=== PATIENT | female | born 1960 | race African-American/Black ===

== ENCOUNTER 2017-02-01 04:30 | Inpatient (IN) | payer OTHER ==
[2017-02-01] VITALS (62 sets, daily range): BP systolic 108–157; BP diastolic 48–119
[~2017-02-01] VITALS: Ht 162.6 cm; Wt 68.0 kg
[2017-02-01 04:49] LABS: BASOPHILS % 0.9 % (0.0-2.0); EOSINOPHILS % 1.9 % (0.0-5.0); HEMATOCRIT. 35.3 % (36.0-48.0); HEMOGLOBIN. 11.8 g/dL (12.0-16.0); LYMPHOCYTES % 28.3 % (20.0-50.0); MEAN CORPUSCULAR HEMOGLOBIN 29.7 pg (28.0-32.0); MEAN CORPUSCULAR VOLUME 89.2 fL (81.0-99.0); MEAN PLATELET VOLUME 9.4 fl (7.4-10.4); MONOCYTES % 10.5 % (2.0-8.0); NEUTROPHILS % 58.4 % (40.0-76.0); PLATELET 60 x1000/uL (130-400); RED BLOOD CELL COUNT 3.96 mill/uL (4.2-5.4); RED CELL DISTRIBUTION WIDTH 17.1 % (11.6-14.6)
[2017-02-01 04:58] LABS: INR 1.4; PROTHROMBIN TIME 14.5 sec (9.4-11.6)
[2017-02-01] MEDS ORDERED: PHENYTOIN SODIUM 500 MG in SODIUM CHLORIDE 0.9% 50 ML IV ONE (05:00)
[2017-02-01] MEDS ORDERED: DEXAMETHASONE 10 MG/ML VIAL IV ONE (05:00)
[2017-02-01] MEDS ORDERED: NICARDIPINE 100 MG in SODIUM CHLORIDE 0.9% 60 ML IV ONE (05:00)
[2017-02-01] MEDS ORDERED: MANNITOL 20% 250 ML IV ONE (05:00)
[2017-02-01 05:11] LABS: CARBON DIOXIDE 25 mEq/L (21-32); CHLORIDE 110 mEq/L (98-107); ETHANOL BLOOD < 10 mg/dL; LDL CHOLESTEROL 70 mg/dL (5-100); TROPONIN I 0.03 ng/mL (0.00-0.04)
[2017-02-01] MEDS ORDERED: IOHEXOL-350 100 ML BOTTLE ONE (05:43)
[2017-02-01 06:12] LABS: CLARITY URINE CLEAR (CLEAR); COLOR URINE YELLOW (YELLOW); GLUCOSE URINE NEGATIVE (NEGATIVE); KETONES URINE NEGATIVE (NEGATIVE); LEUKOCYTE ESTERASE URINE NEGATIVE (NEGATIVE); NITRITE URINE NEGATIVE (NEGATIVE); OCCULT BLOOD URINE NEGATIVE (NEGATIVE); PROTEIN URINE NEGATIVE (NEGATIVE); SPECIFIC GRAVITY URINE 1.025 (1.005-1.030)
[2017-02-01 06:24] LABS: *AMPHETAMINES SCREEN URINE NEGATIVE (NEGATIVE); *BARBITURATES SCREEN URINE NEGATIVE (NEGATIVE); *BENZODIAZEPINES SCREEN URINE NEGATIVE (NEGATIVE); *COCAINE SCREEN URINE NEGATIVE (NEGATIVE); CANNABINOID URINE SCREEN NEGATIVE (NEGATIVE); METHADONE URINE SCREEN NEGATIVE (NEGATIVE); OPIATES URINE SCREEN NEGATIVE (NEGATIVE); PHENCYCLIDINE URINE SCREEN NEGATIVE (NEGATIVE)
[2017-02-01] MEDS ORDERED: ACETAMINOPHEN 650MG SUPP PR PRN (08:45)
[2017-02-01] MEDS ORDERED: IPRATROPIUM/ALBUTEROL 0.5-3(2.5)MG/3ML NEB INH PRN (08:45)
[2017-02-01] MEDS ORDERED: DIPHENHYDRAMINE 50MG/ML VIAL IV PRN (08:45)
[2017-02-01] MEDS ORDERED: NA PHOS,M-B/NA PHOS,DI-BA ENEMA 118ML PR PRN (08:45)
[2017-02-01] MEDS ORDERED: NICARDIPINE 50 MG in SODIUM CHLORIDE 0.9% 230 ML IV PRN (09:00)
[2017-02-01] MEDS: PANTOPRAZOLE SODIUM 40 MG/VIAL IV SCH (09:35)
[2017-02-01] MEDS: DEXT 5%/LACTATED RINGERS 1,000 ML IV SCH (09:35)
[2017-02-01] MEDS ORDERED: KEPP500 PO (09:58)
[2017-02-01] MEDS ORDERED: LEVETIRACETAM 500 MG in SODIUM CHLORIDE 0.9% 100 ML IV SCH (10:15)
[2017-02-01] MEDS ORDERED: MORPHINE SULFATE 2 MG/ML CPJ (NOT FOR IM USE) IV PRN (10:15)
[2017-02-01] MEDS ORDERED: BLOOD SUGAR DIAGNOSTIC STRIP TEST SCH (11:30)
[2017-02-01] MEDS: DEXAMETHASONE 4MG/ML 1ML VIAL IV SCH ×3 (11:55→23:22)
[2017-02-01] MEDS: LEVETIRACETAM 500MG PREMIX 100 ML IV SCH ×2 (11:55→23:23)
[2017-02-01] MEDS ORDERED: PHYTONADIONE 10MG/ML AMP SUBCUT NR (12:15)
[2017-02-01 12:17] LABS: BG BASE EXCESS -0.3 mmol/L (-2.0-2.0); BG CARBOXYHEMOGLOBIN 0.5 % (0.5-1.5); BG DEOXYHEMOGLOBIN 1.8 % (0.0-5.0); BG FRACTION INSPIRED OXYGEN 28; BG HCO3 ACT 23.2 mmol/L (22.0-26.0); BG METHEMOGLOBIN 0.3 % (0.0-1.5); BG OXYGEN SATURATION 98.2 % (92.0-98.5); BG OXYHEMOGLOBIN 97.4 % (94.0-97.0); BG PCO2 34.6 mmHg (35.0-45.0); BG PH 7.445 (7.350-7.450); BG PO2 108.2 mmHg (75.0-100.0); BG SAMPLE SITE LEFT BRACHIAL; BG TOTAL HEMOGLOBIN 12.9 g/dL (12.0-18.0); BG VENT MODE NASAL CANNULA
[2017-02-01] MEDS: PHENYTOIN SODIUM 100MG/2ML VIAL IV SCH ×2 (14:17→21:51)
[2017-02-01 15:49] LABS: CREATINE KINASE 299 IU/L (26-192); CREATINE KINASE MB FRACTION 2.9 ng/mL (0.5-3.6); TROPONIN I < 0.02 ng/mL (0.00-0.04)
[2017-02-01 17:48] LABS: HEPATITIS B SURFACE ANTIGEN NEGATIVE
[2017-02-01 18:16] LABS: HEPATITIS B CORE AB IGM NEGATIVE
[2017-02-01 18:17] LABS: HEPATITIS A AB IGM NEGATIVE (NEGATIVE)
[2017-02-01] MEDS ORDERED: GADOBENATE DIMEGLUMINE 529 MG/ML 10ML IV ONE (18:56)
[2017-02-01] MEDS: MORPHINE SULFATE 2 MG/ML CPJ (NOT FOR IM USE) IV PRN (23:22)
[2017-02-02] VITALS (101 sets, daily range): BP systolic 91–153; BP diastolic 32–88
[2017-02-02] MEDS: ONDANSETRON HCL 4MG/2ML VIAL IV PRN ×3 (00:36→14:23)
[2017-02-02 00:47] LABS: CREATINE KINASE 278 IU/L (26-192); TROPONIN I < 0.02 ng/mL (0.00-0.04)
[2017-02-02 00:50] LABS: CREATINE KINASE MB FRACTION 2.3 ng/mL (0.5-3.6)
[2017-02-02] MEDS: DEXT 5%/LACTATED RINGERS 1,000 ML IV SCH (01:34)
[2017-02-02] MEDS: MORPHINE SULFATE 2 MG/ML CPJ (NOT FOR IM USE) IV PRN (01:35)
[2017-02-02] MEDS: DEXAMETHASONE 4MG/ML 1ML VIAL IV SCH ×3 (05:13→18:22)
[2017-02-02] MEDS: PHENYTOIN SODIUM 100MG/2ML VIAL IV SCH ×3 (05:13→22:41)
[2017-02-02 05:59] LABS: INR 1.5; PROTHROMBIN TIME 15.7 sec (9.4-11.6)
[2017-02-02] MEDS ORDERED: MANNITOL 20% (20GM/100ML) BAG 500ML PREMIX IV NR (07:10)
[2017-02-02] MEDS ORDERED: MANNITOL 20% 250 ML IV NR (07:13)
[2017-02-02] MEDS: PANTOPRAZOLE SODIUM 40 MG/VIAL IV SCH (08:45)
[2017-02-02] MEDS ORDERED: FUROSEMIDE 20MG/2ML VIAL IVP SCH ×2 (08:45→10:45)
[2017-02-02 09:05] LABS: HEMOGLOBIN 10.6 g/dL (12.0-16.0); MEAN CORPUSCULAR HEMOGLOBIN 29.8 pg (28.0-32.0); MEAN CORPUSCULAR VOLUME 89.6 fL (81.0-99.0); PLATELET 65 x1000/uL (130-400); RED BLOOD CELL COUNT 3.58 mill/uL (4.2-5.4); RED CELL DISTRIBUTION WIDTH 17.2 % (11.6-14.6)
[2017-02-02 09:09] LABS: CARBON DIOXIDE 25 mEq/L (21-32); CHLORIDE 111 mEq/L (98-107)
[2017-02-02] MEDS ORDERED: MANNITOL 20% (20GM/100ML) BAG 500ML PREMIX IV SCH (11:00)
[2017-02-02] MEDS: MANNITOL 20% 100 ML IV SCH ×4 (11:58→22:43)
[2017-02-02] MEDS: LEVETIRACETAM 500MG PREMIX 100 ML IV SCH ×2 (12:01→22:42)
[2017-02-02 12:49] LABS: AMMONIA 40 uMol/L (<32)
[2017-02-02] MEDS ORDERED: KCL 20MEQ/100ML PREMIX 100 ML IV SCH (14:00)
[2017-02-02] MEDS ORDERED: POTASSIUM CHLORIDE INJ 20 MEQ in DEXT 5% WATER 100 ML IV NR (15:00)
[2017-02-02] MEDS ORDERED: HYDROMORPHONE HCL/PF 2MG/ML CPJ IV PRN (15:15)
[2017-02-03] VITALS (87 sets, daily range): BP systolic -13–149; BP diastolic -15–102
[2017-02-03] MEDS: DEXAMETHASONE 4MG/ML 1ML VIAL IV SCH ×4 (00:50→18:17)
[2017-02-03] MEDS: DEXT 5%/LACTATED RINGERS 1,000 ML IV SCH (00:51)
[2017-02-03] MEDS: MANNITOL 20% 100 ML IV SCH ×3 (03:12→11:02)
[2017-02-03 05:25] LABS: HEMATOCRIT. 28.4 % (36.0-48.0); HEMOGLOBIN. 9.4 g/dL (12.0-16.0); MEAN CORPUSCULAR HEMOGLOBIN 29.9 pg (28.0-32.0); MEAN CORPUSCULAR VOLUME 90.3 fL (81.0-99.0); MEAN PLATELET VOLUME 10.6 fl (7.4-10.4); PLATELET 63 x1000/uL (130-400); RED BLOOD CELL COUNT 3.15 mill/uL (4.2-5.4); RED CELL DISTRIBUTION WIDTH 17.3 % (11.6-14.6)
[2017-02-03 05:28] LABS: AMMONIA 54 uMol/L (<32); INR 1.4; PARTIAL THROMBOPLASTIN TIME 28.9 sec (23.4-31.0); PROTHROMBIN TIME 14.4 sec (9.4-11.6)
[2017-02-03 05:37] LABS: CARBON DIOXIDE 29 mEq/L (21-32); CHLORIDE 110 mEq/L (98-107); HDL CHOLESTEROL 118 mg/dL (40-59); LDL CHOLESTEROL 119 mg/dL (5-100)
[2017-02-03] MEDS: PHENYTOIN SODIUM 100MG/2ML VIAL IV SCH ×3 (06:43→22:04)
[2017-02-03] MEDS: PANTOPRAZOLE SODIUM 40 MG/VIAL IV SCH (08:49)
[2017-02-03 09:24] LABS: BG BASE EXCESS 3.7 mmol/L (-2.0-2.0); BG CARBOXYHEMOGLOBIN 0.3 % (0.5-1.5); BG DEOXYHEMOGLOBIN 5.7 % (0.0-5.0); BG FRACTION INSPIRED OXYGEN 21; BG HCO3 ACT 26.4 mmol/L (22.0-26.0); BG METHEMOGLOBIN 0.3 % (0.0-1.5); BG OXYGEN SATURATION 94.3 % (92.0-98.5); BG OXYHEMOGLOBIN 93.7 % (94.0-97.0); BG PCO2 33.2 mmHg (35.0-45.0); BG PH 7.519 (7.350-7.450); BG PO2 68.5 mmHg (75.0-100.0); BG SAMPLE SITE RIGHT RADIAL; BG TOTAL HEMOGLOBIN 10.4 g/dL (12.0-18.0); BG VENT MODE ROOM AIR
[2017-02-03 10:12] LABS: PLATELET ESTIMATE DECREASED
[2017-02-03] MEDS ORDERED: GELATIN SPONGE,ABSORBABLE SZ 100 ONE (10:34)
[2017-02-03] MEDS ORDERED: BACITRACIN ZINC 15GM TUBE TOP ONE (10:35)
[2017-02-03] MEDS ORDERED: LIDOCAINE 1%/EPI 1:200,000 10 ML VIAL IJ ONE (10:35)
[2017-02-03] MEDS ORDERED: BACITRACIN 50,000 UNITS/VIAL ONE (10:36)
[2017-02-03] MEDS ORDERED: NORMAL SALINE 0.9% 10 ML SYR ONE (10:36)
[2017-02-03] MEDS ORDERED: THROMBIN (BOVINE) 5000 UNITS/VIAL TOP ONE (10:36)
[2017-02-03] MEDS ORDERED: LACTATED RINGERS 3,000 ML IV ONE (10:36)
[2017-02-03] MEDS ORDERED: POTASSIUM CHLORIDE INJ 40 MEQ in DEXT 5% WATER 250 ML IV NR (11:00)
[2017-02-03] MEDS: LACTULOSE 300 ML in WATER FOR IRRIGATION,STERILE 700 ML PR SCH ×2 (11:00→23:13)
[2017-02-03] MEDS: LEVETIRACETAM 500MG PREMIX 100 ML IV SCH ×3 (11:05→23:28)
[2017-02-03] MEDS ORDERED: CEFAZOLIN SODIUM 1000MG/VIAL ONE (12:25)
[2017-02-03] MEDS ORDERED: SODIUM CHLORIDE 0.9% 10ML VIAL ONE (12:25)
[2017-02-03] MEDS ORDERED: HYDRALAZINE 20MG/ML VIAL ONE (13:12)
[2017-02-03] MEDS ORDERED: LABETALOL HCL 5MG/ML VIAL 20ML IV ONE (13:12)
[2017-02-03] MEDS ORDERED: MORPHINE SULFATE 2 MG/ML CPJ (NOT FOR IM USE) IV PRN (13:30)
[2017-02-03] MEDS ORDERED: MORPHINE SULFATE 2 MG/ML CPJ (NOT FOR IM USE) IV ONE (13:41)
[2017-02-03] MEDS: MORPHINE SULFATE 2 MG/ML CPJ (NOT FOR IM USE) IV PRN ×2 (13:44→17:02)
[2017-02-03] MEDS ORDERED: CEFAZOLIN SODIUM 1000MG/VIAL IV SCH (14:00)
[2017-02-03] MEDS: FOLIC ACID 1 MG, THIAMINE HCL 100 MG, MVI, ADULT NO.1 10 ML in DEXT 5%/LACTATED RINGERS... IV SCH ×4 (14:07)
[2017-02-03] MEDS: CEFAZOLIN 1000MG PREMIX 50 ML IV SCH (15:48)
[2017-02-04] VITALS (99 sets, daily range): BP systolic -7–182; BP diastolic -7–93
[2017-02-04] MEDS: DEXAMETHASONE 4MG/ML 1ML VIAL IV SCH ×4 (00:56→17:52)
[2017-02-04] MEDS: CEFAZOLIN 1000MG PREMIX 50 ML IV SCH ×2 (00:57→07:51)
[2017-02-04] MEDS ORDERED: MORPHINE SULFATE 2 MG/ML CPJ (NOT FOR IM USE) IV SCH (01:40)
[2017-02-04 02:05] LABS: BG BASE EXCESS -2.8 mmol/L (-2.0-2.0); BG CARBOXYHEMOGLOBIN 0.1 % (0.5-1.5); BG FRACTION INSPIRED OXYGEN 52; BG HCO3 ACT 21.7 mmol/L (22.0-26.0); BG METHEMOGLOBIN 0.1 % (0.0-1.5); BG OXYHEMOGLOBIN 76.8 % (94.0-97.0); BG PCO2 36.6 mmHg (35.0-45.0); BG PH 7.391 (7.350-7.450); BG SAMPLE SITE LEFT RADIAL; BG TOTAL HEMOGLOBIN 10.5 g/dL (12.0-18.0); BG VENT MODE MASK - SIMPLE
[2017-02-04] MEDS: DEXT 5%/LACTATED RINGERS 1,000 ML IV SCH (03:40)
[2017-02-04] MEDS: MORPHINE SULFATE 2 MG/ML CPJ (NOT FOR IM USE) IV PRN ×2 (03:55→06:29)
[2017-02-04] MEDS: PHENYTOIN SODIUM 100MG/2ML VIAL IV SCH ×3 (05:30→22:23)
[2017-02-04] MEDS ORDERED: NICARDIPINE 100 MG in SODIUM CHLORIDE 0.9% 60 ML IV PRN (07:30)
[2017-02-04 07:43] LABS: HEMATOCRIT. 31.4 % (36.0-48.0); MEAN CORPUSCULAR HEMOGLOBIN 29.4 pg (28.0-32.0); MEAN CORPUSCULAR VOLUME 92.1 fL (81.0-99.0); MEAN PLATELET VOLUME 10.4 fl (7.4-10.4); PLATELET 60 x1000/uL (130-400); RED BLOOD CELL COUNT 3.41 mill/uL (4.2-5.4); RED CELL DISTRIBUTION WIDTH 17.5 % (11.6-14.6)
[2017-02-04 07:49] LABS: CARBON DIOXIDE 24 mEq/L (21-32); CHLORIDE 113 mEq/L (98-107)
[2017-02-04 07:56] LABS: BG BASE EXCESS -2.4 mmol/L (-2.0-2.0); BG CARBOXYHEMOGLOBIN 0.3 % (0.5-1.5); BG DEOXYHEMOGLOBIN 9.9 % (0.0-5.0); BG HCO3 ACT 23.2 mmol/L (22.0-26.0); BG METHEMOGLOBIN 0.1 % (0.0-1.5); BG OXYGEN SATURATION 90.1 % (92.0-98.5); BG OXYHEMOGLOBIN 89.7 % (94.0-97.0); BG PCO2 42.8 mmHg (35.0-45.0); BG PH 7.351 (7.350-7.450); BG PO2 64.9 mmHg (75.0-100.0); BG SAMPLE SITE RIGHT BRACHIAL; BG TOTAL HEMOGLOBIN 11.3 g/dL (12.0-18.0); BG VENT MODE MASK - NRB
[2017-02-04 08:52] LABS: AMMONIA 40 uMol/L (<32)
[2017-02-04] MEDS ORDERED: LIDOCAINE HCL 1% 20ML VIAL (Pyxis) INJ ONE (09:24)
[2017-02-04] MEDS: PROPOFOL 10MG/ML 100ML 100 ML IV PRN ×3 (09:31→19:17)
[2017-02-04 09:34] LABS: BG BASE EXCESS -4.3 mmol/L (-2.0-2.0); BG CARBOXYHEMOGLOBIN 0.2 % (0.5-1.5); BG DEOXYHEMOGLOBIN 0.8 % (0.0-5.0); BG HCO3 ACT 20.8 mmol/L (22.0-26.0); BG METHEMOGLOBIN 0.1 % (0.0-1.5); BG OXYGEN SATURATION 99.2 % (92.0-98.5); BG OXYHEMOGLOBIN 98.9 % (94.0-97.0); BG PCO2 38.5 mmHg (35.0-45.0); BG PH 7.351 (7.350-7.450); BG PO2 186.3 mmHg (75.0-100.0); BG SAMPLE SITE RIGHT RADIAL; BG TIDAL VOLUME(mL) 600 mL; BG TOTAL HEMOGLOBIN 11.2 g/dL (12.0-18.0); BG VENT MODE VENT - A/C; BG VENT RATE 16 set
[2017-02-04] MEDS: FENTANYL CITRATE/PF 500 MCG in SODIUM CHLORIDE 0.9% 40 ML IV PRN (09:57)
[2017-02-04 10:01] LABS: PLATELET ESTIMATE DECREASED
[2017-02-04] MEDS: PANTOPRAZOLE SODIUM 40 MG/VIAL IV SCH (10:23)
[2017-02-04] MEDS: LEVETIRACETAM 500MG PREMIX 100 ML IV SCH ×2 (10:24→23:19)
[2017-02-04] MEDS: FOLIC ACID 1 MG, THIAMINE HCL 100 MG, MVI, ADULT NO.1 10 ML in DEXT 5%/LACTATED RINGERS... IV SCH ×4 (12:34)
[2017-02-04] MEDS: IPRATROPIUM/ALBUTEROL 0.5-3(2.5)MG/3ML NEB HHN PRN ×3 (13:37→20:28)
[2017-02-04] MEDS ORDERED: SUCCINYLCHOLINE CHLORIDE 200MG/10ML VIAL IV ONE (14:00)
[2017-02-04] MEDS ORDERED: ETOMIDATE 2MG/ML 10ML VIAL IV ONE (14:00)
[2017-02-04 14:13] LABS: BG BASE EXCESS 1.2 mmol/L (-2.0-2.0); BG CARBOXYHEMOGLOBIN 0.5 % (0.5-1.5); BG DEOXYHEMOGLOBIN 5.7 % (0.0-5.0); BG HCO3 ACT 25.9 mmol/L (22.0-26.0); BG METHEMOGLOBIN 0.3 % (0.0-1.5); BG OXYGEN SATURATION 94.3 % (92.0-98.5); BG OXYHEMOGLOBIN 93.5 % (94.0-97.0); BG PCO2 41.3 mmHg (35.0-45.0); BG PH 7.415 (7.350-7.450); BG PO2 70.3 mmHg (75.0-100.0); BG SAMPLE SITE RIGHT RADIAL; BG TIDAL VOLUME(mL) 500 mL; BG TOTAL HEMOGLOBIN 11.3 g/dL (12.0-18.0); BG VENT MODE VENT - A/C; BG VENT RATE 16 set
[2017-02-05] VITALS (101 sets, daily range): BP systolic -8–135; BP diastolic -8–89
[2017-02-05] MEDS: IPRATROPIUM/ALBUTEROL 0.5-3(2.5)MG/3ML NEB HHN PRN ×5 (00:05→20:44)
[2017-02-05] MEDS: DEXAMETHASONE 4MG/ML 1ML VIAL IV SCH ×4 (00:08→17:28)
[2017-02-05] MEDS: PROPOFOL 10MG/ML 100ML 100 ML IV PRN ×4 (02:01→22:16)
[2017-02-05] MEDS: DEXT 5%/LACTATED RINGERS 1,000 ML IV SCH ×2 (02:51→12:21)
[2017-02-05] MEDS: FENTANYL CITRATE/PF 500 MCG in SODIUM CHLORIDE 0.9% 40 ML IV PRN (05:21)
[2017-02-05] MEDS: PHENYTOIN SODIUM 100MG/2ML VIAL IV SCH ×3 (06:47→22:16)
[2017-02-05 07:57] LABS: BG BASE EXCESS 3.8 mmol/L (-2.0-2.0); BG FRACTION INSPIRED OXYGEN 60; BG HCO3 ACT 27.4 mmol/L (22.0-26.0); BG PCO2 38.3 mmHg (35.0-45.0); BG PH 7.473 (7.350-7.450); BG PO2 194.8 mmHg (75.0-100.0); BG SAMPLE SITE RIGHT RADIAL; BG TIDAL VOLUME(mL) 500 mL; BG VENT MODE VENT - A/C; BG VENT RATE 14 set
[2017-02-05] MEDS: PANTOPRAZOLE SODIUM 40 MG/VIAL IV SCH (08:38)
[2017-02-05] MEDS: LEVETIRACETAM 500MG PREMIX 100 ML IV SCH ×2 (10:25→23:00)
[2017-02-05 10:29] LABS: HEMATOCRIT. 28.8 % (36.0-48.0); HEMOGLOBIN. 9.4 g/dL (12.0-16.0); MEAN CORPUSCULAR HEMOGLOBIN 29.8 pg (28.0-32.0); MEAN CORPUSCULAR VOLUME 91.1 fL (81.0-99.0); MEAN PLATELET VOLUME 10.2 fl (7.4-10.4); PLATELET 51 x1000/uL (130-400); RED BLOOD CELL COUNT 3.16 mill/uL (4.2-5.4); RED CELL DISTRIBUTION WIDTH 17.2 % (11.6-14.6)
[2017-02-05 10:39] LABS: CARBON DIOXIDE 28 mEq/L (21-32); CHLORIDE 115 mEq/L (98-107)
[2017-02-05 11:49] LABS: PLATELET ESTIMATE MARKEDLY DECREASED
[2017-02-05 14:44] LABS: INR 1.5; PARTIAL THROMBOPLASTIN TIME 24.6 sec (23.4-31.0); PROTHROMBIN TIME 15.8 sec (9.4-11.6)
[2017-02-05 15:51] LABS: HEMATOCRIT 27.1 % (36.0-48.0); MEAN CORPUSCULAR HEMOGLOBIN 30.2 pg (28.0-32.0); MEAN CORPUSCULAR VOLUME 90.8 fL (81.0-99.0); RED BLOOD CELL COUNT 2.99 mill/uL (4.2-5.4); RED CELL DISTRIBUTION WIDTH 16.9 % (11.6-14.6)
[2017-02-05] MEDS: LACTULOSE 300 ML in WATER FOR IRRIGATION,STERILE 700 ML PR SCH (16:51)
[2017-02-05] MEDS: FOLIC ACID 1 MG, THIAMINE HCL 100 MG, MVI, ADULT NO.1 10 ML in DEXT 5%/LACTATED RINGERS... IV SCH ×4 (18:47)
[2017-02-05 19:12] LABS: ANTI-NUCLEAR ANTIBODIES DIRECT Negative (Negative)
[2017-02-06] VITALS (99 sets, daily range): BP systolic 98–153; BP diastolic 50–99
[2017-02-06] MEDS: DEXAMETHASONE 4MG/ML 1ML VIAL IV SCH ×5 (00:09→23:18)
[2017-02-06] MEDS: IPRATROPIUM/ALBUTEROL 0.5-3(2.5)MG/3ML NEB HHN PRN ×3 (00:38→20:09)
[2017-02-06] MEDS: PROPOFOL 10MG/ML 100ML 100 ML IV PRN ×4 (03:48→20:48)
[2017-02-06] MEDS: FENTANYL CITRATE/PF 500 MCG in SODIUM CHLORIDE 0.9% 40 ML IV PRN (05:18)
[2017-02-06] MEDS: PHENYTOIN SODIUM 100MG/2ML VIAL IV SCH ×3 (05:36→21:00)
[2017-02-06 08:53] LABS: HEMATOCRIT 27.4 % (36.0-48.0); HEMOGLOBIN 8.9 g/dL (12.0-16.0); MEAN CORPUSCULAR HEMOGLOBIN 29.9 pg (28.0-32.0); MEAN CORPUSCULAR VOLUME 91.5 fL (81.0-99.0); RED BLOOD CELL COUNT 2.99 mill/uL (4.2-5.4); RED CELL DISTRIBUTION WIDTH 16.6 % (11.6-14.6)
[2017-02-06 09:00] LABS: CARBON DIOXIDE 28 mEq/L (21-32); CHLORIDE 115 mEq/L (98-107)
[2017-02-06 09:03] LABS: PLATELET 40 x1000/uL (130-400)
[2017-02-06] MEDS: PANTOPRAZOLE SODIUM 40 MG/VIAL IV SCH (09:11)
[2017-02-06] MEDS: FOLIC ACID 1 MG, THIAMINE HCL 100 MG, MVI, ADULT NO.1 10 ML in DEXT 5%/LACTATED RINGERS... IV SCH ×8 (11:00→20:50)
[2017-02-06] MEDS: LACTULOSE 300 ML in WATER FOR IRRIGATION,STERILE 700 ML PR SCH (12:00)
[2017-02-06 12:51] LABS: AMMONIA < 25 uMol/L (<32)
[2017-02-06] MEDS: LEVETIRACETAM 500MG PREMIX 100 ML IV SCH ×2 (13:56→22:03)
[2017-02-06 15:37] LABS: HEMATOCRIT. 25.7 % (36.0-48.0); HEMOGLOBIN. 8.4 g/dL (12.0-16.0); MEAN CORPUSCULAR HEMOGLOBIN 30.1 pg (28.0-32.0); MEAN CORPUSCULAR VOLUME 91.7 fL (81.0-99.0); MEAN PLATELET VOLUME 8.4 fl (7.4-10.4); PLATELET 71 x1000/uL (130-400); RED BLOOD CELL COUNT 2.81 mill/uL (4.2-5.4)
[2017-02-06] MEDS ORDERED: KCL 20MEQ/100ML PREMIX 100 ML IV NR (17:30)
[2017-02-06] MEDS ORDERED: POTASSIUM CHLORIDE INJ 20 MEQ in DEXT 5% WATER 100 ML IV NR (18:00)
[2017-02-06 20:55] LABS: NUCLEATED RED BLOOD CELLS 1 /100 WBC; PLATELET ESTIMATE MARKEDLY DECREASED
[2017-02-07] VITALS (95 sets, daily range): BP systolic 99–148; BP diastolic 52–113
[2017-02-07] MEDS: PROPOFOL 10MG/ML 100ML 100 ML IV PRN ×4 (02:01→20:24)
[2017-02-07] MEDS: PHENYTOIN SODIUM 100MG/2ML VIAL IV SCH ×3 (05:36→22:32)
[2017-02-07] MEDS: DEXAMETHASONE 4MG/ML 1ML VIAL IV SCH ×4 (05:36→23:27)
[2017-02-07 08:30] LABS: HEMATOCRIT. 25.3 % (36.0-48.0); HEMOGLOBIN. 8.4 g/dL (12.0-16.0); MEAN CORPUSCULAR HEMOGLOBIN 30.5 pg (28.0-32.0); MEAN CORPUSCULAR VOLUME 91.7 fL (81.0-99.0); PLATELET 56 x1000/uL (130-400); RED BLOOD CELL COUNT 2.76 mill/uL (4.2-5.4); RED CELL DISTRIBUTION WIDTH 16.4 % (11.6-14.6)
[2017-02-07 08:35] LABS: CARBON DIOXIDE 26 mEq/L (21-32); CHLORIDE 117 mEq/L (98-107)
[2017-02-07] MEDS: PANTOPRAZOLE SODIUM 40 MG/VIAL IV SCH (08:47)
[2017-02-07 09:06] LABS: IMMUNOGLOBULIN A 713 mg/dL (87-352); IMMUNOGLOBULIN G 1745 mg/dL (700-1600); IMMUNOGLOBULIN M 185 mg/dL (26-217)
[2017-02-07 11:16] LABS: NUCLEATED RED BLOOD CELLS 1 /100 WBC
[2017-02-07 11:17] LABS: PLATELET ESTIMATE MARKEDLY DECREASED
[2017-02-07] MEDS: LEVETIRACETAM 500MG PREMIX 100 ML IV SCH ×2 (12:06→23:27)
[2017-02-07] MEDS: FOLIC ACID 1 MG, THIAMINE HCL 100 MG, MVI, ADULT NO.1 10 ML in DEXT 5%/LACTATED RINGERS... IV SCH ×4 (15:50)
[2017-02-07] MEDS ORDERED: POTASSIUM CHLORIDE INJ 40 MEQ in DEXT 5% WATER 250 ML IV NR (19:00)
[2017-02-08] VITALS (76 sets, daily range): BP systolic 103–173; BP diastolic 49–86
[2017-02-08] MEDS: PROPOFOL 10MG/ML 100ML 100 ML IV PRN ×2 (02:47→08:06)
[2017-02-08 05:27] LABS: HEMATOCRIT. 26.3 % (36.0-48.0); HEMOGLOBIN. 8.7 g/dL (12.0-16.0); MEAN CORPUSCULAR HEMOGLOBIN 30.2 pg (28.0-32.0); MEAN CORPUSCULAR VOLUME 90.9 fL (81.0-99.0)
[2017-02-08 05:32] LABS: PLATELET 41 x1000/uL (130-400)
[2017-02-08 05:38] LABS: CARBON DIOXIDE 24 mEq/L (21-32); CHLORIDE 117 mEq/L (98-107)
[2017-02-08] MEDS: PHENYTOIN SODIUM 100MG/2ML VIAL IV SCH ×3 (05:49→23:12)
[2017-02-08] MEDS: DEXAMETHASONE 4MG/ML 1ML VIAL IV SCH ×4 (05:50→23:13)
[2017-02-08] MEDS: IPRATROPIUM/ALBUTEROL 0.5-3(2.5)MG/3ML NEB HHN PRN ×2 (08:00→16:05)
[2017-02-08] MEDS: PANTOPRAZOLE SODIUM 40 MG/VIAL IV SCH (08:06)
[2017-02-08 10:20] LABS: PLATELET 48 x1000/uL (130-400)
[2017-02-08 10:30] LABS: BG BASE EXCESS 1.2 mmol/L (-2.0-2.0); BG DEOXYHEMOGLOBIN 0.3 % (0.0-5.0); BG FRACTION INSPIRED OXYGEN 50; BG HCO3 ACT 20.7 mmol/L (22.0-26.0); BG METHEMOGLOBIN 0.1 % (0.0-1.5); BG OXYGEN SATURATION 99.7 % (92.0-98.5); BG OXYHEMOGLOBIN 99.6 % (94.0-97.0); BG PH 7.655 (7.350-7.450); BG PO2 234.9 mmHg (75.0-100.0); BG SAMPLE SITE LEFT RADIAL; BG TIDAL VOLUME(mL) 600 mL; BG TOTAL HEMOGLOBIN 9.6 g/dL (12.0-18.0); BG VENT MODE VENT - A/C; BG VENT RATE 14 set
[2017-02-08 10:58] LABS: NUCLEATED RED BLOOD CELLS 1 /100 WBC; PLATELET ESTIMATE MARKEDLY DECREASED
[2017-02-08] MEDS: LEVETIRACETAM 500MG PREMIX 100 ML IV SCH ×2 (11:44→23:13)
[2017-02-08] MEDS: MIDAZOLAM HCL 100 MG in DEXT 5% WATER 80 ML IV PRN ×2 (11:45→21:55)
[2017-02-08] MEDS: FENTANYL CITRATE/PF 500 MCG in SODIUM CHLORIDE 0.9% 40 ML IV PRN (11:46)
[2017-02-08] MEDS: DEXT 5%/0.9% NACL 1,000 ML IV SCH (17:51)
[2017-02-09] VITALS (76 sets, daily range): BP systolic 111–145; BP diastolic 52–81
[2017-02-09] MEDS: IPRATROPIUM/ALBUTEROL 0.5-3(2.5)MG/3ML NEB HHN PRN ×3 (00:25→15:15)
[2017-02-09] MEDS: DEXAMETHASONE 4MG/ML 1ML VIAL IV SCH ×4 (05:29→23:19)
[2017-02-09] MEDS: PHENYTOIN SODIUM 100MG/2ML VIAL IV SCH ×3 (05:29→22:09)
[2017-02-09] MEDS: FENTANYL CITRATE/PF 500 MCG in SODIUM CHLORIDE 0.9% 40 ML IV PRN (06:10)
[2017-02-09] MEDS: MIDAZOLAM HCL 100 MG in DEXT 5% WATER 80 ML IV PRN ×2 (07:59→23:19)
[2017-02-09 08:00] LABS: BG BASE EXCESS 0.6 mmol/L (-2.0-2.0); BG CARBOXYHEMOGLOBIN 0.3 % (0.5-1.5); BG DEOXYHEMOGLOBIN 0.9 % (0.0-5.0); BG FRACTION INSPIRED OXYGEN 50; BG HCO3 ACT 25.6 mmol/L (22.0-26.0); BG METHEMOGLOBIN 0.3 % (0.0-1.5); BG OXYGEN SATURATION 99.1 % (92.0-98.5); BG OXYHEMOGLOBIN 98.5 % (94.0-97.0); BG PCO2 42.3 mmHg (35.0-45.0); BG PH 7.399 (7.350-7.450); BG PO2 162.8 mmHg (75.0-100.0); BG SAMPLE SITE LEFT RADIAL; BG TIDAL VOLUME(mL) 500 mL; BG TOTAL HEMOGLOBIN 11.2 g/dL (12.0-18.0); BG VENT MODE VENT - A/C; BG VENT RATE 12 set
[2017-02-09] MEDS: PANTOPRAZOLE SODIUM 40 MG/VIAL IV SCH (09:31)
[2017-02-09 10:00] LABS: HEMATOCRIT. 24.4 % (36.0-48.0); HEMOGLOBIN. 7.9 g/dL (12.0-16.0); MEAN CORPUSCULAR HEMOGLOBIN 29.8 pg (28.0-32.0); MEAN CORPUSCULAR VOLUME 92.4 fL (81.0-99.0); MEAN PLATELET VOLUME 10.3 fl (7.4-10.4); RED BLOOD CELL COUNT 2.64 mill/uL (4.2-5.4)
[2017-02-09 10:02] LABS: CHLORIDE 119 mEq/L (98-107)
[2017-02-09 10:11] LABS: CARBON DIOXIDE 26 mEq/L (21-32)
[2017-02-09 10:12] LABS: PLATELET 36 x1000/uL (130-400)
[2017-02-09] MEDS: LEVETIRACETAM 500MG PREMIX 100 ML IV SCH ×2 (10:31→22:09)
[2017-02-09] MEDS: FOLIC ACID 1 MG, THIAMINE HCL 100 MG, MVI, ADULT NO.1 10 ML in DEXT 5%/LACTATED RINGERS... IV SCH ×4 (13:01)
[2017-02-09 14:12] LABS: PLATELET ESTIMATE MARKEDLY DECREASED
[2017-02-09 17:12] LABS: METHYLMALONIC ACID 152 nmol/L (0-378)
[2017-02-10] VITALS (95 sets, daily range): BP systolic 115–153; BP diastolic 51–83
[2017-02-10] MEDS: DEXT 5%/0.9% NACL 1,000 ML IV SCH (04:20)
[2017-02-10] MEDS: DEXAMETHASONE 4MG/ML 1ML VIAL IV SCH ×3 (05:23→17:46)
[2017-02-10] MEDS: PHENYTOIN SODIUM 250MG/5ML VIAL IV SCH ×3 (05:23→21:10)
[2017-02-10 07:41] LABS: HEMOGLOBIN. 7.4 g/dL (12.0-16.0); MEAN CORPUSCULAR HEMOGLOBIN 30.1 pg (28.0-32.0); MEAN CORPUSCULAR VOLUME 93.2 fL (81.0-99.0); RED BLOOD CELL COUNT 2.47 mill/uL (4.2-5.4)
[2017-02-10] MEDS: IPRATROPIUM/ALBUTEROL 0.5-3(2.5)MG/3ML NEB HHN PRN (08:07)
[2017-02-10] MEDS: PANTOPRAZOLE SODIUM 40 MG/VIAL IV SCH (09:28)
[2017-02-10 09:30] LABS: BG BASE EXCESS -0.5 mmol/L (-2.0-2.0); BG CARBOXYHEMOGLOBIN 0.4 % (0.5-1.5); BG DEOXYHEMOGLOBIN 1.2 % (0.0-5.0); BG FRACTION INSPIRED OXYGEN 40; BG HCO3 ACT 23.4 mmol/L (22.0-26.0); BG METHEMOGLOBIN 0.5 % (0.0-1.5); BG OXYGEN SATURATION 98.8 % (92.0-98.5); BG OXYHEMOGLOBIN 97.9 % (94.0-97.0); BG PCO2 35.3 mmHg (35.0-45.0); BG PO2 151.9 mmHg (75.0-100.0); BG SAMPLE SITE LEFT RADIAL; BG TIDAL VOLUME(mL) 500 mL; BG TOTAL HEMOGLOBIN 7.7 g/dL (12.0-18.0); BG VENT MODE VENT - A/C; BG VENT RATE 12 set
[2017-02-10 10:09] LABS: PLATELET ESTIMATE MARKEDLY DECREASED
[2017-02-10 10:11] LABS: MEAN PLATELET VOLUME 10.3 fl (7.4-10.4); PLATELET 29 x1000/uL (130-400)
[2017-02-10] MEDS: LEVETIRACETAM 500MG PREMIX 100 ML IV SCH ×2 (11:00→22:06)
[2017-02-10] MEDS: FOLIC ACID 1 MG, THIAMINE HCL 100 MG, MVI, ADULT NO.1 10 ML in DEXT 5%/LACTATED RINGERS... IV SCH ×4 (11:30)
[2017-02-10] MEDS: MIDAZOLAM HCL 100 MG in DEXT 5% WATER 80 ML IV PRN (14:28)
== END 2017-02-10 23:00 | disposition short-term general hospital (02) | DRG 853 ==
LOC: ER 04:30 → MICUSO 05:50 → EDBEDREQ 05:55 → EDBEDREQSVC 05:55 → ENRESERV 06:16
PROVIDERS: ADMIT Internal Medicine; ATTEND Internal Medicine
PROC: 30233L1 Transfusion of Nonautologous Fresh Plasma into Peripheral Vein, Percutaneous Approach (ICD-10-PCS; 2017-02-02)
PROC: 30233R1 Transfusion of Nonautologous Platelets into Peripheral Vein, Percutaneous Approach (ICD-10-PCS; 2017-02-02)
PROC: 30233K1 Transfusion of Nonautologous Frozen Plasma into Peripheral Vein, Percutaneous Approach (ICD-10-PCS; 2017-02-02)
PROC: 00H602Z Insertion of Monitoring Device into Cerebral Ventricle, Open Approach (ICD-10-PCS; 2017-02-03)
PROC: 00U207Z Supplement Dura Mater with Autologous Tissue Substitute, Open Approach (ICD-10-PCS; 2017-02-03)
PROC: 4A107BD Monitoring of Intracranial Pressure, Via Natural or Artificial Opening (ICD-10-PCS; 2017-02-03)
PROC: 00C20ZZ Extirpation of Matter from Dura Mater, Open Approach (ICD-10-PCS; principal; 2017-02-03 11:00)
PROC: 5A1955Z Respiratory Ventilation, Greater than 96 Consecutive Hours (ICD-10-PCS; 2017-02-04)
PROC: 0BH17EZ Insertion of Endotracheal Airway into Trachea, Via Natural or Artificial Opening (ICD-10-PCS; 2017-02-04)
PROC: 02HV33Z Insertion of Infusion Device into Superior Vena Cava, Percutaneous Approach (ICD-10-PCS; 2017-02-04)
PROC: B548ZZA Ultrasonography of Superior Vena Cava, Guidance (ICD-10-PCS; 2017-02-04)
DX: A41.9 Sepsis, unspecified organism (principal); I61.9 Nontraumatic intracerebral hemorrhage, unspecified; J96.01 Acute respiratory failure with hypoxia; E43 Unspecified severe protein-calorie malnutrition; I60.7 Nontraumatic subarachnoid hemorrhage from unspecified intracranial artery; J69.0 Pneumonitis due to inhalation of food and vomit; K70.40 Alcoholic hepatic failure without coma; D68.9 Coagulation defect, unspecified; D69.3 Immune thrombocytopenic purpura; E72.20 Disorder of urea cycle metabolism, unspecified; E87.1 Hypo-osmolality and hyponatremia; G81.94 Hemiplegia, unspecified affecting left nondominant side; D64.9 Anemia, unspecified; E78.1 Pure hyperglyceridemia; E83.51 Hypocalcemia; E87.6 Hypokalemia; F17.210 Nicotine dependence, cigarettes, uncomplicated; Z86.79 Personal history of other diseases of the circulatory system; Z92.3 Personal history of irradiation
CPT/HCPCS: 36415; 36569; 36600; 70450; 70496; 70553; 71010; 74000; 76700; 76937; 80048; 80053; 80061; 80076; 80305; 81003; 82140; 82375; 82550; 82553; 82784; 82805; 82962; 83036; 83605; 83690; 83721; 83735; 83921; 84478; 84484; 85007; 85025; 85027; 85384; 85610; 85730; 86038; 86334; 86705; 86709; 86803; 86850; 86870; 86900; 86920; 86927; 86945; 87186; 87340; 88304; 93005; 93306; 93970; 94003; 94640; 94664; 96365; 96368; 96375; 99291; A4216; A9577; C1713; C1725; C1758; C9113; G0482; J0330; J0360; J0690; J1100; J1165; J1940; J1953; J2250; J2270; J2405; J2704; J3010; J3411; J3430; J3480; J3490; J7040; J7042; J7050; J7060; J7120; J7121; J7620; P9017; P9034; Q9967; A4315

== ENCOUNTER 2024-09-28 18:30 | Inpatient (IN) | payer OTHER ==
[~2024-09-28] VITALS: Ht 162.6 cm; Wt 77.3 kg
[2024-09-28] VITALS (7 sets, daily range): BP systolic 120–150; BP diastolic 72–105; PULSE 95–101; RESP 17–22; TEMP 36.9–36.9184; O2SAT 91–96
[~2024-09-28 18:30] MED LIST: KEPP500 PO
[2024-09-28] MEDS: VANCOMYCIN 1G PREMIX 200 ML IV ONE (19:00)
[2024-09-28] MEDS: SODIUM CHLORIDE 0.9% 1,000 ML IV ONE ×2 (19:12→22:00)
[2024-09-28] MEDS ORDERED: LEVETIRACETAM 500MG PREMIX 100 ML IV ONE (19:15)
[2024-09-28 19:25] LABS: BASOPHILS % 1.1 % (0.0-2.0); EOSINOPHILS % 0.8 % (0.0-5.0); HEMATOCRIT. 40.6 % (36.0-48.0); HEMOGLOBIN. 13.5 g/dL (12.0-16.0); LYMPHOCYTES % 21.4 % (20.0-50.0); MEAN PLATELET VOLUME 10.9 fl (7.4-10.4); MONOCYTES % 5.2 % (2.0-8.0); NEUTROPHILS % 71.5 % (40.0-76.0); PLATELET 119 x1000/uL (130-400); RED BLOOD CELL COUNT 4.71 mill/uL (4.2-5.4); RED CELL DISTRIBUTION WIDTH 15.1 % (11.6-14.6)
[2024-09-28 19:42] LABS: CREATININE 0.7 mg/dL (0.6-1.0)
[2024-09-28 19:43] LABS: ETHANOL BLOOD < 10 mg/dL (<10); TROPONIN I HIGH SENSITIVITY 7 ng/L (3.0-34); UREA NITROGEN BLOOD 8 mg/dL (9-23)
[2024-09-28 19:44] LABS: ASPARTATE AMINOTRANSFERASE 35 IU/L (<34)
[2024-09-28] MEDS: PIPERACILLIN/TAZO 3.375G/50ML 50 ML IV ONE (19:44)
[2024-09-28 19:45] LABS: BILIRUBIN DIRECT 0.4 mg/dL (<=3.0); BILIRUBIN TOTAL 1.1 mg/dL (0.1-1.0); PROTEIN TOTAL 6.9 g/dL (6.0-8.3)
[2024-09-28] MEDS: LEVETIRACETAM 4,500 MG in SODIUM CHLORIDE 0.9% 100 ML IV SCH (20:06)
[2024-09-28 20:26] LABS: INR 1.2
[2024-09-28] MEDS ORDERED: IOHEXOL-350 100 ML BOTTLE ONE (21:05)
[2024-09-28] MEDS ORDERED: VANCOMYCIN 1G PREMIX 200 ML IV SCH (21:45)
[2024-09-28] MEDS ORDERED: IPRATROPIUM/ALBUTEROL 0.5-3(2.5)MG/3ML NEB HHN PRN (21:45)
[2024-09-28] MEDS ORDERED: AMLO2.5T45 PO (21:58)
[2024-09-28] MEDS ORDERED: LEVE750T10 PO (21:58)
[2024-09-28] MEDS: PANTOPRAZOLE SODIUM 40 MG/VIAL IV SCH (22:00)
[2024-09-28] MEDS: VANCOMYCIN 1.5GM PMX (XELLIA) 300 ML IV SCH (22:15)
[2024-09-29] VITALS (86 sets, daily range): BP systolic 122–177; BP diastolic 71–150; PULSE 67–103; RESP 11–22; TEMP 36.9–37.1; O2SAT 92–99
[2024-09-29] MEDS: ENOXAPARIN 40MG/0.4ML SYR SUBCUT SCH (01:35)
[2024-09-29] MEDS ORDERED: BISACODYL 5MG TABLET PO PRN (03:45)
[2024-09-29] MEDS: MAGNESIUM 1 G PREMIX 100 ML IV NR (04:23)
[2024-09-29] MEDS: LACTULOSE 20G/30ML UDC PO SCH (05:37)
[2024-09-29] MEDS: PIPERACILLIN/TAZO 3.375G/50ML 50 ML IV SCH (05:37)
[2024-09-29 06:32] LABS: ASPARTATE AMINOTRANSFERASE 39 IU/L (<34); BILIRUBIN DIRECT 0.4 mg/dL (<=3.0); BILIRUBIN TOTAL 1.1 mg/dL (0.1-1.0); PROTEIN TOTAL 7.1 g/dL (6.0-8.3)
[2024-09-29] MEDS: LEVETIRACETAM 1000MG PREMIX 100 ML IV SCH (08:22)
[2024-09-29] MEDS: POLYETHYLENE GLYCOL 3350 (17GM) 1 DOSE PACK PO SCH (08:22)
[2024-09-29] MEDS: DOCUSATE SODIUM SUGAR FREE 100MG/10ML UDC NG SCH (08:23)
[2024-09-29] MEDS: VANCOMYCIN 750MG PREMIX 150 ML IV SCH (08:58)
[2024-09-29] MEDS ORDERED: LEVETIRACETAM 500MG PREMIX 100 ML IV SCH (09:00)
[2024-09-29 09:33] LABS: BG BASE EXCESS -4.4 mmol/L (-2.0-3.0); BG CARBOXYHEMOGLOBIN 0.5 % (0.5-1.5); BG DEOXYHEMOGLOBIN 2.5 % (0.0-5.0); BG FLOW(L/min) 1.50 L/min; BG FRACTION INSPIRED OXYGEN 26; BG HCO3 ACT 18.8 mmol/L (21.0-28.0); BG METHEMOGLOBIN 0.3 % (0.5-1.5); BG OXYGEN SATURATION 97.5 % (94.0-98.0); BG OXYHEMOGLOBIN 96.7 % (94.0-98.0); BG PCO2 30.1 mmHg (32.0-45.0); BG PH 7.414 (7.350-7.450); BG PO2 98.4 mmHg (83.0-108.0); BG SAMPLE SITE RIGHT RADIAL; BG TOTAL HEMOGLOBIN 14.8 g/dL (12.0-16.0); BG VENT MODE NASAL CANNULA
[2024-09-29] MEDS ORDERED: DOCUSATE SODIUM 100MG CAPSULE PO PRN (10:15)
[2024-09-29] MEDS ORDERED: ACETAMINOPHEN 650MG SUPP PR PRN (10:15)
[2024-09-29] MEDS ORDERED: ACETAMINOPHEN 325MG TABLET PO PRN (10:15)
[2024-09-29] MEDS ORDERED: CLONIDINE 0.1MG TABLET PO PRN (10:15)
[2024-09-29] MEDS ORDERED: IPRATROPIUM/ALBUTEROL 0.5-3(2.5)MG/3ML NEB HHN PRN (10:15)
[2024-09-29] MEDS ORDERED: ACETAMINOPHEN 650MG/20.3ML UDC GT PRN (10:15)
[2024-09-29] MEDS ORDERED: ONDANSETRON HCL 4MG/2ML INJ IV PRN (10:15)
[2024-09-29] MEDS: LACTULOSE ENEMA 1,000ML BOTTLE PR SCH (12:02)
[2024-09-29 12:08] LABS: TRIGLYCERIDE 61.0 mg/dL (0-150)
[2024-09-29 12:09] LABS: LDL CHOLESTEROL 107.0 mg/dL (5-100)
[2024-09-29 12:12] LABS: FOLIC ACID (FOLATE) SERUM 16.46 ng/mL (>5.38); VITAMIN B12 SERUM 1066 pg/mL (211-911)
[2024-09-29 15:36] LABS: CLARITY URINE CLOUDY (CLEAR); GLUCOSE URINE NEGATIVE (NEGATIVE); KETONES URINE TRACE (NEGATIVE); LEUKOCYTE ESTERASE URINE 1+ (NEGATIVE); NITRITE URINE NEGATIVE (NEGATIVE); OCCULT BLOOD URINE 3+ (NEGATIVE); PH URINE 6.0 (4.5-8.0); PROTEIN URINE 1+ (NEGATIVE); SPECIFIC GRAVITY URINE 1.023 (1.005-1.030); UROBILINOGEN URINE 1.0 E.U./dL (0.2-1.0)
[2024-09-29 16:07] LABS: COLOR URINE BROWN (YELLOW)
[2024-09-29 16:08] LABS: BACTERIA URINE TRACE; MUCUS URINE TRACE /lpf (< = 2+); RBC URINE TNTC /hpf (0-2); SQUAMOUS EPITHELIAL CELL URINE FEW /lpf (RARE/1+)
[2024-09-29 16:13] LABS: *AMPHETAMINES SCREEN URINE NEGATIVE (NEGATIVE); *BARBITURATES SCREEN URINE NEGATIVE (NEGATIVE); *BENZODIAZEPINES SCREEN URINE NEGATIVE (NEGATIVE); *COCAINE SCREEN URINE NEGATIVE (NEGATIVE); METHADONE URINE SCREEN NEGATIVE (NEGATIVE); OPIATES URINE SCREEN NEGATIVE (NEGATIVE)
[2024-09-29 16:14] LABS: CANNABINOID URINE SCREEN NEGATIVE (NEGATIVE); ECSTASY MDMA SCREEN URINE NEGATIVE (NEGATIVE); PHENCYCLIDINE URINE SCREEN NEGATIVE (NEGATIVE)
[2024-09-29] MEDS: RIFAXIMIN 550 MG TABLET PO SCH (21:38)
[2024-09-30] VITALS (46 sets, daily range): BP systolic 12–169; BP diastolic 63–122; PULSE 47–103; RESP 11–33; TEMP 36.6–37; O2SAT 90–100
[2024-09-30] MEDS: ACETAMINOPHEN 325MG TABLET PO PRN (00:12)
[2024-09-30 06:33] LABS: CREATININE 0.8 mg/dL (0.6-1.0); UREA NITROGEN BLOOD 8 mg/dL (9-23)
[2024-09-30 06:36] LABS: BASOPHILS % 0.3 % (0.0-2.0); EOSINOPHILS % 2.5 % (0.0-5.0); HEMATOCRIT. 40.4 % (36.0-48.0); HEMOGLOBIN. 13.7 g/dL (12.0-16.0); LYMPHOCYTES % 16.6 % (20.0-50.0); MEAN PLATELET VOLUME 11.1 fl (7.4-10.4); MONOCYTES % 7.0 % (2.0-8.0); NEUTROPHILS % 73.6 % (40.0-76.0); PLATELET 129 x1000/uL (130-400); RED BLOOD CELL COUNT 4.73 mill/uL (4.2-5.4); RED CELL DISTRIBUTION WIDTH 15.1 % (11.6-14.6)
[2024-09-30] MEDS: POTASSIUM CHLORIDE 20MEQ TABLET SR PO SCH (13:24)
[2024-09-30] MEDS: DEXT 5% WATER + KCL 20MEQ/L 1,000 ML IV SCH (16:00)
[2024-10-01] VITALS (11 sets, daily range): BP systolic 98–145; BP diastolic 59–93; PULSE 55–78; RESP 12–18; TEMP 36.2–36.8; O2SAT 91–100
[2024-10-01 07:16] LABS: BASOPHILS % 0.6 % (0.0-2.0); EOSINOPHILS % 4.0 % (0.0-5.0); HEMATOCRIT. 34.5 % (36.0-48.0); HEMOGLOBIN. 11.8 g/dL (12.0-16.0); LYMPHOCYTES % 19.4 % (20.0-50.0); MEAN PLATELET VOLUME 11.1 fl (7.4-10.4); MONOCYTES % 6.3 % (2.0-8.0); NEUTROPHILS % 69.7 % (40.0-76.0); PLATELET 100 x1000/uL (130-400); RED BLOOD CELL COUNT 4.08 mill/uL (4.2-5.4); RED CELL DISTRIBUTION WIDTH 14.7 % (11.6-14.6)
[2024-10-01 07:31] LABS: CREATININE 0.8 mg/dL (0.6-1.0); UREA NITROGEN BLOOD 8 mg/dL (9-23)
[2024-10-01] MEDS: LEVETIRACETAM 500MG TABLET PO SCH (08:39)
[2024-10-01] MEDS: POTASSIUM CHLORIDE 20MEQ TABLET SR PO SCH (11:07)
[2024-10-02] VITALS: BP 124/59; PULSE 66; RESP 16; TEMP 36.9; O2SAT 95
[2024-10-02 02:00] VITALS: BP 117/74; PULSE 62; RESP 15; O2SAT 95
[2024-10-02 04:00] VITALS: BP 93/50; PULSE 57; RESP 12; TEMP 36.2; O2SAT 99
[2024-10-02 06:50] LABS: BASOPHILS % 0.5 % (0.0-2.0); CREATININE 0.6 mg/dL (0.6-1.0); EOSINOPHILS % 4.9 % (0.0-5.0); HEMATOCRIT. 36.3 % (36.0-48.0); HEMOGLOBIN. 12.5 g/dL (12.0-16.0); LYMPHOCYTES % 23.9 % (20.0-50.0); MEAN PLATELET VOLUME 10.6 fl (7.4-10.4); MONOCYTES % 7.7 % (2.0-8.0); NEUTROPHILS % 63.0 % (40.0-76.0); PLATELET 98 x1000/uL (130-400); RED BLOOD CELL COUNT 4.27 mill/uL (4.2-5.4); RED CELL DISTRIBUTION WIDTH 14.7 % (11.6-14.6)
[2024-10-02 06:52] LABS: UREA NITROGEN BLOOD < 5 mg/dL (9-23)
[2024-10-02] MEDS ORDERED: LACT-390 MT (08:28)
[2024-10-02] MEDS: POTASSIUM CHLORIDE 20MEQ TABLET SR PO SCH (10:26)
[2024-10-02 12:00] VITALS: BP 130/51; PULSE 65; RESP 20; TEMP 36.3; O2SAT 100
[2024-10-02 16:00] VITALS: BP 120/56; PULSE 69; RESP 20; TEMP 36.3; O2SAT 99
[2024-10-02 17:06] VITALS: BP 120/56; PULSE 69; TEMP 97.3; O2SAT 99
== END 2024-10-02 19:40 | disposition home or self-care (01) | DRG 871 ==
LOC: ER 18:30 → CVICU 20:40 → ENRESERV 21:36 → CVICU 22:49 → 5EST 09-30 11:00 → 7WST 10-02 08:30
PROVIDERS: ADMIT Internal Medicine; ATTEND Internal Medicine
PROC: 4A00X4Z Measurement of Central Nervous Electrical Activity, External Approach (ICD-10-PCS; principal; 2024-10-02)
DX: A41.9 Sepsis, unspecified organism (principal); E87.0 Hyperosmolality and hypernatremia; G93.41 Metabolic encephalopathy; E87.20 Acidosis, unspecified; G82.20 Paraplegia, unspecified; I69.351 Hemiplegia and hemiparesis following cerebral infarction affecting right dominant side; G93.89 Other specified disorders of brain; K76.82 Hepatic encephalopathy; E83.51 Hypocalcemia; G40.909 Epilepsy, unspecified, not intractable, without status epilepticus; D69.6 Thrombocytopenia, unspecified; K82.8 Other specified diseases of gallbladder; K80.20 Calculus of gallbladder without cholecystitis without obstruction; K74.60 Unspecified cirrhosis of liver; K40.90 Unilateral inguinal hernia, without obstruction or gangrene, not specified as recurrent; K56.41 Fecal impaction; N20.0 Calculus of kidney; I25.10 Atherosclerotic heart disease of native coronary artery without angina pectoris; E83.42 Hypomagnesemia; I10 Essential (primary) hypertension; I51.7 Cardiomegaly; R73.9 Hyperglycemia, unspecified; Z74.01 Bed confinement status; E87.8 Other disorders of electrolyte and fluid balance, not elsewhere classified; Z79.899 Other long term (current) drug therapy; S30.0XXA Contusion of lower back and pelvis, initial encounter; X58.XXXA Exposure to other specified factors, initial encounter; Y93.89 Activity, other specified; Y92.89 Other specified places as the place of occurrence of the external cause; Y99.8 Other external cause status
CPT/HCPCS: 36415; 36600; 70496; 70498; 71045; 71250; 74176; 80048; 80061; 80076; 80202; 80305; 80320; 81003; 82140; 82375; 82378; 82607; 82746; 82805; 82962; 83036; 83605; 83735; 84145; 84443; 84484; 85025; 93005; 93970; 95816; 99291; A4606; J1650; J1953; J2060; J2470; J2543; J3373; J3475; J7030; J7050; J7060; Q9967; G0480